=== PATIENT | female | born 1970 | race Hispanic/Latino ===

== ENCOUNTER → 2018-12-09 | Outpatient (CLI) | payer BC ==
[~2018-12-09] MED LIST: LEVO88TA4 PO
== END | disposition home or self-care (01) ==
LOC: RAH 13:18
PROVIDERS: ATTEND Family Medicine
DX: Z12.31 Encounter for screening mammogram for malignant neoplasm of breast (principal)
CPT/HCPCS: 77067

== ENCOUNTER 2020-11-03 21:01 | Emergency (ER) | payer BC, OTHER ==
[2020-11-03] MEDS ORDERED: KETOROLAC TROMETHAMINE 60 MG/2 ML VIAL ONE (21:24)
== END 2020-11-03 22:33 | disposition home or self-care (01) ==
LOC: EDH 21:01
DX: S63.601A Unspecified sprain of right thumb, initial encounter (principal); S00.03XA Contusion of scalp, initial encounter; I10 Essential (primary) hypertension; E11.9 Type 2 diabetes mellitus without complications; Z90.49 Acquired absence of other specified parts of digestive tract; Z90.710 Acquired absence of both cervix and uterus; W22.8XXA Striking against or struck by other objects, initial encounter; Y93.89 Activity, other specified; Y92.89 Other specified places as the place of occurrence of the external cause; Y99.8 Other external cause status
CPT/HCPCS: 73130; 96372; 99283; J1885

== ENCOUNTER 2022-02-01 10:35 | Emergency (ER) | payer BC ==
[~2022-02-01] VITALS: Ht 154.9 cm; Wt 97.5 kg
[2022-02-01] MEDS ORDERED: ADENOSINE 6MG VIAL IV ONE (10:37)
[2022-02-01 11:01] LABS: BASOPHILS % (AUTO) 0.4 % (0.0-5.0); EOSINOPHILS % (AUTO) 1.7 % (0.0-8.0); HEMATOCRIT 45.7 % (36-48); LYMPHOCYTES % (AUTO) 34.1 % (21.0-51.0); MEAN CORPUSCULAR HEMOGLOBIN 29.1 pg (27.0-33.0); MEAN CORPUSCULAR HGB CONC 32.8 g/dL (32.0-36.0); MEAN CORPUSCULAR VOLUME 88.6 fL (79-99); MONOCYTES % (AUTO) 5.2 % (3.0-13.0); NEUTROPHILS % (AUTO) 58.4 % (40.0-77.0); PLATELET COUNT (AUTO) 237 K/uL (130-400); RED BLOOD CELL COUNT(AUTO) 5.16 MIL/uL (4.00-5.50); RED CELL DISTRIBUTION WIDTH 13.7 % (11.0-15.5); WHITE BLOOD COUNT (AUTO) 8.2 K/uL (4.8-10.8)
[2022-02-01 11:20] LABS: B-TYPE NATRIURETIC PEPTIDE 12 pg/mL (0-100)
[2022-02-01 11:35] LABS: ALBUMIN 3.9 g/dL (3.5-5.0); BILIRUBIN,TOTAL 0.6 mg/dL (0.2-1.0); CREATININE 0.9 mg/dL (0.5-1.5); MAGNESIUM 1.7 mg/dL (1.80-2.40); POTASSIUM 3.5 mmol/L (3.5-5.1); THYROID STIMULATING HORMONE 3.2 uIU/mL (0.36-3.74); TOTAL PROTEIN, SERUM 7.7 g/dL (6.0-8.3)
[2022-02-01] MEDS ORDERED: MAGNESIUM OXIDE 400 MG TABLET PO SCH (15:00)
[2022-02-01] MEDS ORDERED: VERA120C3 PO (15:52)
[2022-02-01] MEDS: VERAPAMIL HCL 240 MG SRTAB PO SCH ×2 (16:37→16:38)
[2022-02-01 17:45] VITALS: BP 135/83
== END 2022-02-01 17:25 | disposition home or self-care (01) ==
LOC: EDH 10:35
DX: I47.1 Supraventricular tachycardia (principal); E83.42 Hypomagnesemia; E11.65 Type 2 diabetes mellitus with hyperglycemia; E78.00 Pure hypercholesterolemia, unspecified; I10 Essential (primary) hypertension; Z90.49 Acquired absence of other specified parts of digestive tract; Z98.890 Other specified postprocedural states; Z79.899 Other long term (current) drug therapy
CPT/HCPCS: 36415; 71045; 80053; 82550; 83735; 83880; 84443; 84484; 85025; 93005 ×2; 96374; 99284; J0153

== ENCOUNTER → 2022-03-08 | Outpatient (CLI) | payer BC ==
[~2022-03-08] MED LIST changes: +VERA120C3 PO
== END | disposition home or self-care (01) ==
LOC: SHCH 15:43
PROVIDERS: ATTEND Internal Medicine Cardiovascular Disease
DX: I47.1 Supraventricular tachycardia (principal); R60.9 Edema, unspecified
CPT/HCPCS: 93306

== ENCOUNTER 2022-11-12 22:34 | Emergency (ER) | payer BC ==
[~2022-11-12] VITALS: Ht 154.9 cm; Wt 108.0 kg
[2022-11-12 23:07] LABS: BASOPHILS % (AUTO) 0.4 % (0.0-5.0); HEMATOCRIT 44.1 % (36-48); LYMPHOCYTES % (AUTO) 32.1 % (21.0-51.0); MEAN CORPUSCULAR HEMOGLOBIN 29.1 pg (27.0-33.0); MEAN CORPUSCULAR HGB CONC 32.7 g/dL (32.0-36.0); MEAN CORPUSCULAR VOLUME 89.1 fL (79-99); MONOCYTES % (AUTO) 7.1 % (3.0-13.0); NEUTROPHILS % (AUTO) 58.1 % (40.0-77.0); PLATELET COUNT (AUTO) 253 K/uL (130-400); RED BLOOD CELL COUNT(AUTO) 4.95 MIL/uL (4.00-5.50); RED CELL DISTRIBUTION WIDTH 13.8 % (11.0-15.5)
[2022-11-12 23:09] LABS: APPEARANCE,URINE CLEAR (CLEAR); BILIRUBIN,URINE NEGATIVE (NEGATIVE); COLOR,URINE LIGHT-YELLOW (YELLOW); GLUCOSE, URINE (UA) NEGATIVE (NEGATIVE); KETONES,URINE NEGATIVE (NEGATIVE); LEUKOCYTE ESTERASE ,URINE NEGATIVE Leu/uL (NEGATIVE); NITRATE,URINE NEGATIVE (NEGATIVE); OCCULT BLOOD,URINE NEGATIVE (NEGATIVE); PH,URINE 5.5 (5.0-8.0); PROTEIN,URINE NEGATIVE (NEGATIVE); UROBILINOGEN,URINE 0.2 mg/dL (0.2-1.0)
[2022-11-12 23:16] LABS: CREATININE 0.8 mg/dL (0.5-1.5)
[2022-11-12 23:21] LABS: ALBUMIN 3.9 g/dL (3.5-5.0); TOTAL PROTEIN, SERUM 7.7 g/dL (6.0-8.3)
[2022-11-13] MEDS ORDERED: KETOROLAC 30MG VIAL (30MG/ML) IVP ONE (02:00)
[2022-11-13] MEDS ORDERED: PANTOPRAZOLE 40 MG/VIAL IVP ONE (02:00)
[2022-11-13] MEDS ORDERED: PANT40TA55 PO (02:52)
[2022-11-13 03:12] VITALS: BP 150/74
== END 2022-11-13 03:14 | disposition home or self-care (01) ==
LOC: EDH 22:34
DX: R10.13 Epigastric pain (principal); M54.50 Low back pain, unspecified; E11.9 Type 2 diabetes mellitus without complications; E78.00 Pure hypercholesterolemia, unspecified; I10 Essential (primary) hypertension; Z79.1 Long term (current) use of non-steroidal anti-inflammatories (NSAID); Z79.899 Other long term (current) drug therapy; Z90.49 Acquired absence of other specified parts of digestive tract
CPT/HCPCS: 99284; 74176; 84484; 80053; 83690; 85025; 81003; 36415; 96374; 96375; 93005; J1885; C9113

== ENCOUNTER → 2024-07-29 | Outpatient (CLI) | payer BC ==
[~2024-07-29] MED LIST changes: +PANT40TA55 PO
--- NOTE | 2024-07-30 08:44 | HMCIMG ---
Exam Type: MAMMO SCREENING BILATERAL Clinical Information: ROUTINE SCREENING Comparison: April 12, 2021 Technique: Bilateral mammogram with CAD was performed with CC and MLO projections. FINDINGS: Breast parenchyma is predominantly fatty-replaced. No dominant mass or suspicious microcalcification identified. There is no nipple retraction or skin thickening. CAD shows no worrisome regions. IMPRESSION: 1. No mammographic signs of malignancy. 2. Routine follow-up recommended. CATEGORY 1: NEGATIVE Note: A negative x-ray should not delay biopsy if a dominant or clinically suspicious mass is present, since 8-10% of cancers are not identified by mammography.
== END | disposition home or self-care (01) ==
LOC: RAH 11:21
PROVIDERS: ATTEND Obstetrics & Gynecology
DX: Z12.31 Encounter for screening mammogram for malignant neoplasm of breast (principal)
CPT/HCPCS: 77067

== ENCOUNTER 2025-01-04 20:48 | Emergency (ER) | payer BC ==
[~2025-01-04] VITALS: Ht 154.9 cm; Wt 95.7 kg
--- NOTE | 2025-01-04 21:30 | ERN ---
ED Note History of Present Illness Stated Complaint: BACK PAIN COMING TO RT SIDE SEVERAL DAYS Chief Complaint: Back Pain-No Injury Time Seen by MD: 20:53 Dictation: PATIENT IS A 54-YEAR-OLD FEMALE COMING IN TODAY WITH COMPLAINTS OF LEFT LATERAL AND POSTERIOR CHEST WALL PAIN TENDERNESS WORSE WHEN SHE COUGHS, SNEEZES OR PRESSES ON IT FOR THE LAST 4-5 DAYS. NO FEVER NO CHILLS NO NAUSEA VOMITING. NO RASH. SHE DENIES ANY SUBSTERNAL CHEST PAIN NO SOB NO NAUSEA VOMITING NO NECK PAIN NO ARM PAIN NO BACK PAIN. TAKE SHE TOOK SOME IBUPROFEN YESTERDAY. SHE STATES SHE DOES WORK AT [employer] AND HAS DUE TO HEAVY LIFTING FROM TIME TO TIME. PATIENT STATES SHE WAS INVOLVED IN A TRAINING AT HER JOB WHERE THEY DO PATIENT TAKES DOWN AND SHE SAID SHE MIGHT HAVE HURT HER CHEST THEN BECAUSE SHE WAS HAVING PAIN WHEN SHE LEFT. THIS WAS SEVERAL DAYS AGO Allergies: Coded Allergies: No Known Drug Allergies (Unverified Allergy, Unknown, 08/27/16) Home Meds Active Scripts Pantoprazole Sodium (Protonix) 40 Mg Ectab, 40 MG PO DAILYBKFST, #30 TAB.EC 0 Refills Prov:ALAINA TATE MD 11/13/22 Verapamil HCl (Verapamil Sr) 120 Mg Cap24h.pel, 120 MG PO DAILY for 30 Days, #30 CAP 0 Refills Prov:ALAINA TATE MD 02/01/22 Reported Medications Levothyroxine Sodium (Synthroid) 88 Mcg Tablet, 88 MCG PO DAILY, TAB 08/27/16 Past Medical History Past Medical History: Diabetes-Type II, Hypertension Surgical History: Cholecystectomy, History: Not Applicable RN Note Reviewed/Agreed w/PFSH: Yes Review of System Dictation CONSTITUTIONAL: NEGATIVE EXCEPT FOR HPI HEAD/FACE: NEGATIVE EXCEPT FOR HPI EENT: NEGATIVE EXCEPT FOR HPI RESPIRATORY: NEGATIVE EXCEPT FOR HPI LEFT LATERAL AND POSTERIOR CHEST WALL PAIN TENDERNESS GASTROINTESTINAL/ABDOMINAL: NEGATIVE EXCEPT FOR HPI GENITOURINARY: NEGATIVE EXCEPT FOR HPI MUSCULOSKELETAL: NEGATIVE EXCEPT FOR HPI INTEGUMENTARY: NEGATIVE EXCEPT FOR HPI NEUROLOGICAL/PSYCH: NEGATIVE EXCEPT FOR HPI HEMATOLOGIC/LYMPHATIC: NEGATIVE EXCEPT FOR HPI ALL SYSTEMS NEGATIVE, EXCEPT NOTED ABOVE. 13 POINT REVIEW OF SYSTEMS ASSESSED AND ALL NEGATIVE EXCEPT FOR ABOVE. Initial Vital Sign VS Vital Signs Date Time Temp Pulse Resp B/P (MAP) Pulse Ox O2 Delivery O2 Flow Rate FiO2 01/04/25 21:09 98.4 66 20 110/73 98 Room Air 01/04/25 21:30 0 21 Physical Exam Dictation VITAL SIGNS REVIEWED GENERAL APPEARANCE: ALERT, ORIENTED X 3, MODERATE ACUTE DISTRESS, WELL DEVELOPED, NOURISHED. OBESE HEAD AND FACE: NON-TRAUMATIC. EYES: PERRL, PINK CONJUNCTIVAS, EYELID NO TRAUMA, ANTERIOR CHAMBER WITH ARCUS SENILIS. EARS: PINNAS INTACT AND NO SIGNS OF TRAUMA OR ERYTHEMA EAR CANALS CLEAR AND NO DISCHARGE TM NO ERYTHEMA NOSE: NO DISCHARGE, NO BLEEDING. OROPHARYNX: MOUTH NORMAL, TONGUE PINK, PHARYNX CLEAR,NO ERYTHEMA, TONSILS NO EXUDATES, NO ABSCESSES NOTED, MUCOUS MEMBRANE MOIST NECK: SUPPLE, NON-TENDER, NO THYROMEGALY, NO MASSES, NO JVD, NO BRUITS BREAST:DEFERRED CHEST CHEST WALL TENDERNESS TO LEFT LATERAL AND POSTERIOR RIBS AND BACK. TENDE RNESS, NO CREPITUS, NO PARADOXICAL MOVEMENT, NO RETRACTIONS PALPATION REPRODUCES PAIN LUNGS:CLEAR, WELL-VENTILATED, SYMMETRIC, NO RALES, NO WHEEZING, NO RHONCHI, NO STRIDOR, GOOD BREATH SOUNDS BILATERALLY HEART: REGULAR RATE, REGULAR RHYTHM, NO MURMUR, NO GALLOPS VASCULAR: NO PERIPHERAL EDEMA, ABDOMEN: SOFT, POSITIVE BOWEL SOUNDS, NONDISTENDED, NO GUARDING, NONTENDER, NO REBOUND, NO MASSES NO HEPATOMEGALY, NO SPLENOMEGALY, NO ZAMARRIPA'S SIGN, NO HERNIAS. RECTAL: DEFERRED GENITAL: DEFERRED NEUROLOGICAL: NORMAL SPEECH, MOTOR FUNCTION INTACT, SENSORY FUNCTION INTACT MUSCULOSKELETAL: NECK NONTENDER, FULL RANGE OF MOTION, BACK NONTENDER, FULL RANGE OF MOTION, EXTREMITIES: NONTENDER, FULL RANGE OF MOTION SKIN: COLOR PINK, DRY, NO TURGOR, NO RASH, NO LACERATIONS, NO ABRASIONS, NO CONTUSIONS. LYMPHATIC: DEFERRED Results (Laboratory/Radiology) Laboratory/Radiology RIB SERIES NEGATIVE Labs Reviewed?: Yes ED Course ED Course Orders Procedure Category Date Status Time Ketorolac 60mg/2ml PHA 01/04/25 Complete (Toradol 60mg/2ml) 21:30 Dexamethasone 4mg/Ml PHA 01/04/25 Complete 1ml Vial (Dexametha 21:30 Ribs Uni Lt W Pa RAD 01/04/25 Taken Chest 3+Vws 21:26 Current Medications Medications (Trade) Dose Ordered Sig/Cole Route PRN Reason Start Time Stop Time Status Last Admin Dose Admin Dexamethasone Sodium Phosphate (dexaMETHasone 4MG/ML 1ML VIAL) 8 mg ONCE ONCE IM 01/04/25 21:30 01/04/25 21:31 DC 01/04/25 21:34 Ketorolac Tromethamine (toRADol 60MG/ 2ML) 60 mg ONCE ONCE IM 01/04/25 21:30 01/04/25 21:31 DC 01/04/25 21:32 Vital Signs Date Time Temp Pulse Resp B/P (MAP) Pulse Ox O2 Delivery O2 Flow Rate FiO2 01/04/25 21:30 77 18 110/73 99 Room Air* 0 21 01/04/25 21:09 98.4 66 20 110/73 98 Room Air CHEST X-RAY AND RIB SERIES NEGATIVE PATIENT DISCHARGED HOME WITH A ACUTE COSTOCHONDRITIS Medical Decision Making MDM MEDICAL DISCHARGE MAKING BASED ON PAIN MANAGEMENT AND RIB SERIES WITH CHEST X- RAY X-RAYS NEGATIVE PATIENT DISCHARGED HOME WITH A ACUTE CHEST WALL STRAIN SHE WILL BE WRITTEN OUT OF WORK WITH IBUPROFEN FOR PAIN UNTIL CLEARED BACK BY HER DOCTOR. DX & DISP Disposition: Discharge Departure Impression: Primary Impression: Strain of tendon of left half of anterior chest wall Condition: Stable Scripts Ibuprofen (Ibuprofen 800 mg Tab) 800 Mg Tab 800 MG PO Q8H PRN for fever or pain, #30 TAB 0 Refills Prov: GREGORY HARRISON IRRIGATOR OVERHEAD 01/04/25 Additional Instructions: Follow-up with primary care provider in 1 to 2 days. Take medications as directed here in the emergency room. Okay to continue home medications unless otherwise discussed during your visit in the emergency room today. Return to your nearest emergency room if symptoms worsen or if there is no improvement. Call 911 if you need immediate assistance. Take Tylenol or Motrin [id number] as needed and if no contraindications are present. Increase oral hydration. A wound culture or urine culture was ordered here in the emergency room department please follow-up with primary care provider and advise them to get repeat ports from our facility. If you had any Ramon wrap/splints that were applied here, please do not remove them until you see your primary care or specialty. Take ibuprofen every 8 hours with food for the next two days. No lifting gr eater than 10 lb and no work until cleared back by your primary care doctor. Referrals: ARIC BARTON MD (PCP) Time of Disposition: 22:57 I have reviewed the case, and I agree with, Diagnosis and Plan GREGORY HARRISON NP Jan 04, 2025 21:30
[2025-01-04] MEDS: ketOROlac 60 MG VIAL (30MG/ML) IM ONE (21:32)
[2025-01-04] MEDS: dexaMETHasone SOD PHOSPHATE 4 MG/ML 1ML VIAL IM ONE (21:34)
[2025-01-04] MEDS ORDERED: ACET-2079 PO (22:58)
[2025-01-04] MEDS ORDERED: IBUP-2077 PO (23:01)
[2025-01-04 23:22] VITALS: BP 121/68; PULSE 77; RESP 18; TEMP 98; O2SAT 98
--- NOTE | 2025-01-05 11:03 | HMCIMG ---
RIBS UNI LT W PA CHEST 3+VWS REASON: LEFT ANTERIOR AND LATERAL CHEST WALL PAIN TENDERNESS FOR 3-4 DAYS TECHNIQUE: 6 views were obtained. FINDINGS: PA chest x-ray shows clear lungs. Heart size is normal. Mediastinum and bony thorax appear unremarkable. 5 view left rib series was obtained. There are normal-appearing ribs. There are no fractures. There are no focal lytic or blastic lesions. Soft tissues appear normal. IMPRESSION: 1. Normal PA chest x-ray. 2. Normal 5 view rib series.
== END 2025-01-04 23:25 | disposition home or self-care (01) ==
LOC: EDH 20:48
DX: S29.011A Strain of muscle and tendon of front wall of thorax, initial encounter (principal); E11.9 Type 2 diabetes mellitus without complications; I10 Essential (primary) hypertension; Z79.890 Hormone replacement therapy; Z79.899 Other long term (current) drug therapy; Z90.49 Acquired absence of other specified parts of digestive tract; X58.XXXA Exposure to other specified factors, initial encounter; Y93.89 Activity, other specified; Y92.89 Other specified places as the place of occurrence of the external cause; Y99.8 Other external cause status
CPT/HCPCS: 99284; 71101; 96372 ×2; J1100; J1885